=== PATIENT | female | born 1985 | race Caucasian/White ===

== ENCOUNTER → 2017-07-22 | Outpatient (CLI) | payer OTHER ==
[~2017-07-22] MED LIST: BUPR150ER; CHLGLU.12S MT; CIPR500 PO; CITA20 PO; CLIN300 PO; CLON1 PO; Colace100 MG PO; DOCU100 PO; DOXY100 PO; ESCI5; Esgic Tablet1 EACH PO; FISH1000; HYDACE5 PO; IBUP800 PO; LORA1 PO; LORA2 PO; METO10 PO; METO5A PO; METPHE10 PO; NAPR500ERA PO; OXCA150; OXYACE5T PO; PANT40 PO; PARO10; PREN-16 PO; PROM25 PO; RXLORA1 PO; RXOXYACE PO; SERT50 PO; TOPI100; TOPI50 PO; TRAM50 PO; TRAZ100 PO; ZOLP10 PO; [UNRECOGNIZED DRUG - OTHER]
== END | disposition home or self-care (01) ==
LOC: LAB SHORT 16:20 → LAB 16:20
DX: F41.1 Generalized anxiety disorder (principal); Z79.899 Other long term (current) drug therapy
CPT/HCPCS: G0480

== ENCOUNTER 2017-10-08 22:30 | Emergency (ER) | payer OTHER ==
[~2017-10-08] VITALS: Ht 175.3 cm; Wt 55.8 kg
[~2017-10-08 22:30] MED LIST changes: -METPHE10 PO
[2017-10-08] MEDS ORDERED: VENL150ER PO (23:47)
[2017-10-08] MEDS ORDERED: METPHE10 PO (23:48)
[2017-10-09 00:04] LABS: Beta Hcg Serum Pregnancy Negative (Negative); Mono Spot Negative (NEGATIVE)
[2017-10-09] MEDS ORDERED: Zofran Odt4 MG PO (00:29)
== END 2017-10-09 00:38 | disposition home or self-care (01) ==
LOC: ER 22:30
PROVIDERS: Emergency Medicine
DX: G43.909 Migraine, unspecified, not intractable, without status migrainosus (principal); R51 Headache; Z88.0 Allergy status to penicillin; Z91.048 Other nonmedicinal substance allergy status; Z91.040 Latex allergy status; Z79.899 Other long term (current) drug therapy; F32.9 Major depressive disorder, single episode, unspecified
CPT/HCPCS: 36415; 84703; 86308; 96361; 96374; 96375; 99283-25; J1200; J1885; J2765; J7030

== ENCOUNTER → 2018-07-02 | Outpatient (CLI) | payer OTHER ==
[~2018-07-02] MED LIST changes: +METPHE10 PO; +VENL150ER PO; +Zofran Odt4 MG PO
== END ==
LOC: LAB 14:13 → LAB SHORT 14:13
DX: N89.8 Other specified noninflammatory disorders of vagina (principal); R39.9 Unspecified symptoms and signs involving the genitourinary system
CPT/HCPCS: 87086

== ENCOUNTER 2018-11-13 20:43 | Emergency (ER) | payer OTHER ==
[~2018-11-13] VITALS: Ht 175.3 cm; Wt 61.2 kg
[2018-11-13 22:27] LABS: BASOPHILS ABSOLUTE AUTO 0.03 K/mm3 (0.00-0.23); BASOPHILS PERCENT AUTO 0 % (0-2); EOSINOPHILS ABSOLUTE AUTO 0.14 K/mm3 (0.00-0.68); EOSINOPHILS PERCENT AUTO 2 % (0-6); Hematocrit 41.4 % (33.0-51.0); Hemoglobin 13.3 g/dL (11.5-16.0); IMMATURE GRAN ABSOLUTE AUTO 0.03 K/mm3 (0.00-0.10); IMMATURE GRAN PERCENT AUTO 0 % (0-1); LYMPHOCYTES ABSOLUTE AUTO 1.94 K/mm3 (0.84-5.20); LYMPHOCYTES PERCENT AUTO 28 % (21-46); MONOCYTES ABSOLUTE AUTO 0.38 K/mm3 (0.16-1.47); MONOCYTES PERCENT AUTO 6 % (4-13); Mean Corpuscular HGB 29.5 pg (26.0-34.0); Mean Corpuscular HGB Conc 32.1 g/dL (31.5-36.5); Mean Corpuscular Volume 92 fL (80-100); Mean Platelet Volume 9.9 fL (9.1-12.4); NEUTROPHILS ABSOLUTE AUTO 4.44 K/mm3 (1.96-9.15); NEUTROPHILS PERCENT AUTO 64 % (41-73); Platelet Count 212 K/mm3 (150-400); RDW Coefficient Variation 12.3 % (11.7-14.2); RDW Standard Deviation 41.4 fL (35.1-46.3); Red Blood Cell Count 4.51 M/mm3 (3.80-5.20); White Blood Cell Count 6.96 K/mm3 (4.00-11.30)
[2018-11-13 22:52] LABS: Alanine Aminotransfer (ALT/SGP 22 U/L (12-78); Albumin, Blood 3.8 g/dL (3.4-5.0); Albumin/Globulin Ratio 1.2 (0.8-1.8); Alk Phos 88 U/L (50-136); Anion Gap 5 mmol/L (6-16); Aspartate Aminotrans (AST/SGOT 14 U/L (12-37); Bilirubin, Total 0.2 mg/dL (0.1-1.0); Blood Urea Nitrogen 18 mg/dL (8-24); CO2, Blood 25 mmol/L (21-32); Calcium, Blood 8.7 mg/dL (8.5-10.1); Chloride, Blood 111 mmol/L (98-108); Creatinine, Blood 0.72 mg/dL (0.40-1.00); Globulin, Blood 3.3 g/dL (2.2-4.0); Glomerular Filtration Rate >60 (60-); Glucose, Blood 90 mg/dL (70-99); Potassium, Blood 3.7 mmol/L (3.5-5.5); Sodium, Blood 141 mmol/L (136-145); Total Protein, Blood 7.1 g/dL (6.4-8.2)
[2018-11-14] MEDS ORDERED: PROM25 PO (01:26)
== END 2018-11-14 03:16 | disposition home or self-care (01) ==
LOC: ER 20:43
PROVIDERS: Physician Assistant
DX: B34.9 Viral infection, unspecified (principal); F32.9 Major depressive disorder, single episode, unspecified; Z88.0 Allergy status to penicillin; Z91.048 Other nonmedicinal substance allergy status; Z91.040 Latex allergy status; Z79.899 Other long term (current) drug therapy
CPT/HCPCS: 71046; 80053; 85025; 86308; 87081; 87430; 96374; 96375; 99283-25; J1885; J2550; J7120

== ENCOUNTER 2019-03-26 11:07 | Emergency (ER) | payer OTHER ==
[~2019-03-26] VITALS: Ht 175.3 cm; Wt 65.8 kg
[2019-03-26 12:20] LABS: BASOPHILS ABSOLUTE AUTO 0.03 K/mm3 (0.00-0.23); BASOPHILS PERCENT AUTO 1 % (0-2); EOSINOPHILS PERCENT AUTO 2 % (0-6); Hematocrit 44.4 % (33.0-51.0); Hemoglobin 14.2 g/dL (11.5-16.0); IMMATURE GRAN ABSOLUTE AUTO 0.01 K/mm3 (0.00-0.10); IMMATURE GRAN PERCENT AUTO 0 % (0-1); LYMPHOCYTES ABSOLUTE AUTO 1.38 K/mm3 (0.84-5.20); LYMPHOCYTES PERCENT AUTO 29 % (21-46); MONOCYTES ABSOLUTE AUTO 0.37 K/mm3 (0.16-1.47); MONOCYTES PERCENT AUTO 8 % (4-13); Mean Corpuscular HGB 29.6 pg (26.0-34.0); Mean Corpuscular Volume 93 fL (80-100); Mean Platelet Volume 10.3 fL (9.1-12.4); NEUTROPHILS ABSOLUTE AUTO 2.85 K/mm3 (1.96-9.15); NEUTROPHILS PERCENT AUTO 60 % (41-73); Platelet Count 209 K/mm3 (150-400); RDW Coefficient Variation 12.6 % (11.7-14.2); White Blood Cell Count 4.74 K/mm3 (4.00-11.30)
[2019-03-26 12:36] LABS: Alanine Aminotransfer (ALT/SGP 36 U/L (12-78); Albumin, Blood 3.7 g/dL (3.4-5.0); Albumin/Globulin Ratio 1.2 (0.8-1.8); Alk Phos 70 U/L (50-136); Anion Gap 4 mmol/L (6-16); Aspartate Aminotrans (AST/SGOT 24 U/L (12-37); Bilirubin, Total 0.4 mg/dL (0.1-1.0); Blood Urea Nitrogen 14 mg/dL (8-24); CO2, Blood 28 mmol/L (21-32); Calcium, Blood 8.7 mg/dL (8.5-10.1); Chloride, Blood 110 mmol/L (98-108); Globulin, Blood 3.1 g/dL (2.2-4.0); Glomerular Filtration Rate >60 (60-); Glucose, Blood 92 mg/dL (70-99); Potassium, Blood 3.6 mmol/L (3.5-5.5); Sodium, Blood 142 mmol/L (136-145); Total Protein, Blood 6.8 g/dL (6.4-8.2)
[2019-03-29] MEDS ORDERED: VENLAFAXINE HC150 M1 PO (22:13)
[2019-03-29] MEDS ORDERED: AMPDEX10 (22:14)
== END 2019-03-26 16:00 | disposition home or self-care (01) ==
LOC: ER 11:07
PROVIDERS: Emergency Medicine
DX: K59.09 Other constipation (principal); F41.9 Anxiety disorder, unspecified; F32.9 Major depressive disorder, single episode, unspecified; Z88.0 Allergy status to penicillin; Z91.048 Other nonmedicinal substance allergy status; Z91.040 Latex allergy status; Z79.899 Other long term (current) drug therapy
CPT/HCPCS: 36415; 74022; 80053; 83690; 85025; 96374; 99283-25; J2405

== ENCOUNTER 2019-03-29 16:46 | Observation (INO) | payer OTHER ==
[~2019-03-29] VITALS: Ht 175.3 cm; Wt 68.1 kg
[2019-03-29] MEDS ORDERED: AMPDEX10 PO (22:14)
[2019-03-29] MEDS ORDERED: ZOLPIDEM TARTRAT5 MG PO (22:14)
[2019-03-30 05:58] LABS: Hematocrit 37.4 % (33.0-51.0); Hemoglobin 12.2 g/dL (11.5-16.0); Mean Corpuscular HGB 29.8 pg (26.0-34.0); Mean Corpuscular HGB Conc 32.6 g/dL (31.5-36.5); Mean Corpuscular Volume 91 fL (80-100); Mean Platelet Volume 10.3 fL (9.1-12.4); Platelet Count 174 K/mm3 (150-400); RDW Coefficient Variation 12.3 % (11.7-14.2); RDW Standard Deviation 41.5 fL (35.1-46.3); White Blood Cell Count 7.46 K/mm3 (4.00-11.30)
[2019-03-30 06:16] LABS: Anion Gap 6 mmol/L (6-16); Blood Urea Nitrogen 9 mg/dL (8-24); Bun/Creatinine Ratio 15.7 (12.0-20.0); CO2, Blood 26 mmol/L (21-32); Calcium, Blood 8.1 mg/dL (8.5-10.1); Chloride, Blood 110 mmol/L (98-108); Creatinine, Blood 0.57 mg/dL (0.40-1.00); Glomerular Filtration Rate >60 (60-); Glucose, Blood 81 mg/dL (70-99); Potassium, Blood 3.7 mmol/L (3.5-5.5); Sodium, Blood 142 mmol/L (136-145)
--- NOTE | 2019-03-30 06:50 | NUR ---
PT RESTS QUIETLY SINCE THIS RN ASSUMED CARE, STATED THAT SHE CANNOT DRINK ANYMORE GOLYTELY SHE IS "TOO FULL" ALSO INQUIRES REGARDING WHEN GOLYTELY SHOULD START TO WORK, PT WAS EDUCATED REGARDING NEED TO DRINK MORE, SHE CONTINUES TO APPEAR TO BE ASLEEP WHEN UNDISTURBED. VITALS REMAIN STABLE, PT HAS NOT YET HAD A BOWEL MOVEMENT, APPROXIMATELY 1/3 OF GOLYTELY TAKEN BY PT OF THIS TIME. WILL CONT TO MONITOR.
--- NOTE | 2019-03-30 07:00 | NUR ---
REPORT FROM [facility]PS RN. ASSUMED PT CARE.
--- NOTE | 2019-03-30 07:55 | NUR ---
VSS. ASSESSMENT CHARTED. THIS RN WOKE PT UPON ENTERING ROOM. INSTRUCTED PT TO WORK ON GOLYTELY SHE CAN. PT STATES "I AM TOO FULL TO DRINK MORE" BSC AT BEDSIDE FOR PT. AWAITING BED ASSIGNMENT.
--- NOTE | 2019-03-30 09:25 | NUR ---
OFFERED PT SCHEDULED MEDICATIONS. PT DECLINED AT THIS TIME.
--- NOTE | 2019-03-30 10:16 | NUR ---
PT STATES SHE WALKED TO THE AND HAD SOME WATERY STOOL. PT STATES SHE GOT HER UNDERWEAR DIRTY. HOSP UNDERWEAR AND HOSP PANTS PROVIDED TO PT. AWAITING ROOM ASSIGNMENT.
--- NOTE | 2019-03-30 11:56 | NUR ---
PT STILL WORKING ON [employer]. DENIES NEEDS. AWAITING ROOM ASSIGNMENT.
[2019-03-30] MEDS ORDERED: AIMOVIG AU140 MG/1 M SC (12:16)
[2019-03-30] MEDS ORDERED: LINZESS145 MCG PO (12:17)
--- NOTE | 2019-03-30 17:23 | NUR ---
PATIENT IS ALERT AND ORIENTED AND COOPERATIVE WITH CARE. SHE COMPLAINS OF PAIN IN HER ABDOMEN AND BACK. STATES SHE HAS NOT HAD A BM FOR A MONTH. PAIN TREATED PER EMAR. NAUSEA TREATED PER EMAR. PATIENT REQUESTED A GATORADE TO MIX WITH HER GOLYTELY WHICH SHE HAS BEEN SIPPING ON. STATES SHE HAS PASSED SOME LIQUID STOOL ALONG WITH MUCOUS, NO FORMED BM. WILL CONTINUE TO MONITOR.
--- NOTE | 2019-03-30 17:56 | NUR ---
PT GAVE THIS STUDENT RN PERMISSION TO BE PART OF HER CARE ON 03/31/19.
[2019-03-31 05:27] LABS: Anion Gap 5 mmol/L (6-16); Blood Urea Nitrogen 11 mg/dL (8-24); Bun/Creatinine Ratio 11.9 (12.0-20.0); CO2, Blood 26 mmol/L (21-32); Calcium, Blood 8.3 mg/dL (8.5-10.1); Chloride, Blood 113 mmol/L (98-108); Creatinine, Blood 0.92 mg/dL (0.40-1.00); Glomerular Filtration Rate >60 (60-); Glucose, Blood 89 mg/dL (70-99); Potassium, Blood 4.1 mmol/L (3.5-5.5); Sodium, Blood 144 mmol/L (136-145)
--- NOTE | 2019-03-31 06:11 | NUR ---
SHIFT SUMMARY PT HAD NO NEW ISSUES NOTED. PT REPORTS NO BM'S DURING SHIFT. PT HAS ATE FAST FOODS AND FROM A BAG OF SNACKS NEAR HER BED. PT HAS NOT DRANK MUCH OF THE GOLYTELY. PT REPORTS NAUSEA AND ABD AT BEGINNING OF SHIFT. PT STATES SHE SLEPT T/O SHIFT W/OUT ISSUE. PT STATED THAT SHE IS WILLING TO TRY NG TUBE AGAIN. THIS AM PT IS SLEEPING AND IN NO DISTRESS. CALL LIGHT IN REACH.
--- NOTE | 2019-03-31 16:42 | NUR ---
NS STARTED ON PATIENT AT 125/HR. SOON AFTER THE ADMINISTRATION OF NS, THE PATIENT'S FRIEND NOTICED REDNESS SPREADING ON TH EPATIENT'S NECK. NS STOPPED AND UNHOOKED FROM PATIENT. WILL LET DR. SILVA KNOW.
--- NOTE | 2019-03-31 18:01 | NUR ---
THE PATIENT ADVOCATE, ALLA, TALKED WITH THE PATIENT ABOUT HER CONCERNS TODAY. DR. SILVA AND THE RN WERE INVOLVED IN THE CONVERSATION WITH THE PATIENT AND HER ADVOCATE. NS WAS STARTED AT 125/HR BECAUSE THE PATIENT WAS CONCERNED SHE WAS BECOMING DEHYDRATED ALTHOUGH DR. SILVA VERIFIED HER LAB WORK SHOWS SHE IS NOT DEHYDRATED. BENEDRYL IV WAS ORDERED BECAUSE THE PATIENT BEGAN TO SHOW A REDNESS ON HER NECK AND FACE, THIS WAS ADMINISTERED. DR. CHENEY SAW THE PATIENT AT THE BEDSIDE THIS AFTERNOON. HE STARTED HER ON AN ENEMA BID AND COLACE PO DAILY. DR. CHENEY SAID THE PATIENT DOES NOT HAVE TO DRINK THE GOLYTLEY IF SHE FEELS IT IS NOT HELPING HER. WILL CONTINUE TO MONITOR
--- NOTE | 2019-04-01 04:46 | NUR ---
SHIFT SUMMARY: VSS. AFEB. A/OX4. PT UP ALL NIGHT DESPITE RECEIVING PRN AMBIEN. STATES SHE IS JUST HYPERFOCUSED AND ANXIOUS ABOUT HAVING A BM. FREQUENTLY ATTEMPTING BMS AND STRAINING ON THE TOILET, STATES SHE FEELS PRESSURE IN HER LOW ABD THOUGH SHE NEEDS TO HAVE A BM. NO BM PRODUCED. MED X 2 FOR ABD PAIN W/ GOOD EFFECT. PT REPORTING INCREASED NAUSEA WITHOUT VOMITING TONIGHT- ZOFRAN AND PHENERGAN ADMINISTERED W/IMPROVEMENT IN SYMPTOMS EACH TIME. PT SNACKING ON FOOD BROUGHT IN BY FAMILY/FRIENDS. ABD SOFT, TENDER X 4 W/PALPATION, NON-DISTENDED. PT DENIES PASSING ANY FLATUS. WALKING IN HALLS W/FAMILY. NO ACUTE CHANGES. WILL CONT TO MONITOR.
[2019-04-01 05:25] LABS: BASOPHILS ABSOLUTE AUTO 0.03 K/mm3 (0.00-0.23); BASOPHILS PERCENT AUTO 1 % (0-2); EOSINOPHILS ABSOLUTE AUTO 0.11 K/mm3 (0.00-0.68); EOSINOPHILS PERCENT AUTO 2 % (0-6); Hematocrit 39.6 % (33.0-51.0); Hemoglobin 12.4 g/dL (11.5-16.0); IMMATURE GRAN ABSOLUTE AUTO 0.03 K/mm3 (0.00-0.10); IMMATURE GRAN PERCENT AUTO 1 % (0-1); LYMPHOCYTES ABSOLUTE AUTO 1.53 K/mm3 (0.84-5.20); LYMPHOCYTES PERCENT AUTO 30 % (21-46); MONOCYTES ABSOLUTE AUTO 0.42 K/mm3 (0.16-1.47); MONOCYTES PERCENT AUTO 8 % (4-13); Mean Corpuscular HGB 28.9 pg (26.0-34.0); Mean Corpuscular HGB Conc 31.3 g/dL (31.5-36.5); Mean Corpuscular Volume 92 fL (80-100); Mean Platelet Volume 10.6 fL (9.1-12.4); NEUTROPHILS PERCENT AUTO 59 % (41-73); Platelet Count 186 K/mm3 (150-400); RDW Coefficient Variation 12.4 % (11.7-14.2); RDW Standard Deviation 42.3 fL (35.1-46.3); Red Blood Cell Count 4.29 M/mm3 (3.80-5.20); White Blood Cell Count 5.12 K/mm3 (4.00-11.30)
[2019-04-01 05:39] LABS: Alanine Aminotransfer (ALT/SGP 29 U/L (12-78); Albumin, Blood 3.1 g/dL (3.4-5.0); Albumin/Globulin Ratio 1.1 (0.8-1.8); Alk Phos 57 U/L (50-136); Anion Gap 6 mmol/L (6-16); Aspartate Aminotrans (AST/SGOT 22 U/L (12-37); Bilirubin, Total 0.5 mg/dL (0.1-1.0); Blood Urea Nitrogen 10 mg/dL (8-24); Bun/Creatinine Ratio 11.7 (12.0-20.0); CO2, Blood 24 mmol/L (21-32); Calcium, Blood 8.5 mg/dL (8.5-10.1); Chloride, Blood 113 mmol/L (98-108); Creatinine, Blood 0.86 mg/dL (0.40-1.00); Globulin, Blood 2.9 g/dL (2.2-4.0); Glomerular Filtration Rate >60 (60-); Glucose, Blood 76 mg/dL (70-99); Potassium, Blood 3.6 mmol/L (3.5-5.5); Sodium, Blood 143 mmol/L (136-145)
--- NOTE | 2019-04-01 16:10 | NUR ---
PT IS A/OX3, PLEASANT AND COOPERATIVE, THE PT IS UP IND IN HER ROOM, THE PT THIS AM DID NOT WANT TO TAKE THE ORDERED FLEETS MINERAL OIL ENEMA INSTEAD REPORTED THE A SOAP ALON ENEMA WORKS BETTER FOR HER, A CALL WAS MADE TO DR. CHENEY AND A SOAP ALON ENEMA WAS ORDERED AND ADMINISTERED BY THE POST ACUTE CARE NURSE PRACTITIONER, THE PT REPORTED SOME RESULTS, HOWEVER NOTHING SIGNIFICANT, PT WAS MEDICATED FOR NAUSEA AND PAIN X2 SO FAR THIS SHIFT, PT WAS MEDICATED FOR ANXIETY X1, PT APPEARS TO BE BREATHING EASILY ON RA, CALL LIGHT IN REACH, WILL CONTINUE TO MONITOR AND ASSESS FOR CHANGES
--- NOTE | 2019-04-02 00:51 | NUR ---
CALL PLACED TO ANSWERING SERVICE. PT REPORTING PAIN 8/10 NOT RELIEVED W/TORADOL. STATES PAIN IS IN LOW ABDOMEN AND WRAPS AROUND SIDES AND LOW BACK. PER PT, LOCATION IS UNCHANGED FROM TIME OF ADMIT. DR. CARBAJAL ORDERED FENTANYL 25-50MCG IV Q4HRS PRN TO HELP MANAGE PAIN.
--- NOTE | 2019-04-02 05:09 | NUR ---
SHIFT SUMMARY: VSS. AFEB. A/OX4. COMMUNICATES NEEDS. PT ANXIOUS TONIGHT, STATES THAT NOT HAVING CONTROL OVER WHAT IS GOING ON/NOT KNOWING WHEN SHE WILL BE DISCHARGED/AND STILL NO FORMED BM PRODUCED IS CAUSING HER MUCH ANXIETY. REFUSED PRN ANXIOLYTIC. FENTANYL APPEARS TO HAVE EFFECTIVELY REDUCED PAIN. PT HAS BEEN MOSTLY SLEEPING SINCE RECEIVING ANALGESIC. PT STATES SHE HAS BEEN UNABLE TO SLEEP- REFUSED HER PRN AMBIEN STATING IT MADE HER MORE ALERT. SOAP SUDS ENEMA ADMINISTERED W/SMALL FLECKS OF BM PRODUCED. PT STATES NOTHING FORMED. ABD SOFT, TENDER THROUGHOUT, MILDLY DISTENDED. ANTI-NAUSEA MED X1 W/GOOD EFFECT. UP AMB IN ROOM FREQUENTLY. AMB IN HALLS W/FAMILY AND FRIENDS. NO ACUTE CHANGES, WILL CONT TO MONITOR.
[2019-04-02 05:36] LABS: Anion Gap 7 mmol/L (6-16); Blood Urea Nitrogen 11 mg/dL (8-24); Bun/Creatinine Ratio 13.1 (12.0-20.0); CO2, Blood 22 mmol/L (21-32); Calcium, Blood 8.3 mg/dL (8.5-10.1); Chloride, Blood 113 mmol/L (98-108); Creatinine, Blood 0.84 mg/dL (0.40-1.00); Glomerular Filtration Rate >60 (60-); Glucose, Blood 83 mg/dL (70-99); Phosphorus, Blood 4.4 mg/dL (2.5-4.9); Potassium, Blood 3.9 mmol/L (3.5-5.5); Sodium, Blood 142 mmol/L (136-145)
--- NOTE | 2019-04-02 14:59 | NUR ---
PT TO PROCEDURE PT TAKEN VIA GURNEY TO DAY SURGERY FOR PROCEDURE BY [facility].
--- NOTE | 2019-04-02 15:25 | NUR ---
04/02/19 1525 Bucky Hernandez History, Chart, Medications and Allergies reviewed before start of procedure.MONITOR INTACT WITH CONTINUOUS PULSE OXIMETRY AND INTERMITTENT BP.3-LEAD EKG REVIEWED WITH PHYSICIAN PRIOR TO START OF PROCEDURE.O2 VIA N/C INTACT THROUGHOUT SEDATION/PROCEDURE. PATIENT DETERMINED TO BE ASA APPROPRIATE FOR PROPOFOL SEDATION PRIOR TO START OF PROCEDURE BY DR. HCENEY.
--- NOTE | 2019-04-02 15:34 | NUR ---
LATE ENTRY 1500 PT TRANSFERRED VIA GURNEY FROM [facility]. Patient confirms NPO status and agrees with scheduled surgery. History, Chart, Medications and Allergies reviewed before start of procedure. Lungs clear T/O to Auscultation.
--- NOTE | 2019-04-02 18:27 | NUR ---
SHIFT SUMMARY PT HAD SCOPE WITH IRRGATION TO RESOLVE FECAL IMPACKTION AND TOLORATED WELL. PT WAS MEDICATED FOR PAIN X3 AND NAUSEA X2. PT HAS TOLORATED DINNER WELL. PT EDUCATED ON THE EFFECTS OF NARCOTICS AND SLOWING OF BM'S. PT REQUESTED TO MEDICATED SELF FOR ANXIETY WITH HOME MEDS, PT INFORMED OF HOSPITAL POLICY AND PT DECLINED SELF MEDICATING. CALL LIGHT WITH IN REACH WILL REPORT TO [facility].
--- NOTE | 2019-04-03 01:01 | NUR ---
PATIENT REPORTED PAIN LS ABDOMINAL AND N/V. IV FENTANYL 50 MCG GIVEN AND PO PHENERGAN GIVEN PER EMAR.
--- NOTE | 2019-04-03 01:03 | NUR ---
PATIENT REPORTS INSOMNIA AND TRAZADONE 25 MG PRN GIVEN PER EMAR.
--- NOTE | 2019-04-03 03:51 | NUR ---
SHIFT SUMMARY PATIENT HAD NO ACUTE CHANGES OBSERVED. REPORTED LS ABDOMINAL PAIN AND NAUSEOUS. IV FENTANYL 50 MCG GIVEN AND PO PHENERGAN PER EMAR. PATIENT REPORTS SHE GOT HUNGRY AND ABLE TO EAT PAUL CRACKERS AND SALTINES. REPORTED INSOMNIA AND TRAZADONE 25 MG GIVEN PER EMAR. ANBULATED HALLWAY WITH FRIEND FIRST PART OF SHIFT AND ABLE TO TAKE SHOWER. PIV REMAINS INTACT. VSS/AFEBRILE. CALL LIGHT IN REACH. BED IN LOWEST POSITION. WILL CONTINUE TO MONITOR UNTIL DAY SHIFT NURSE ASSUMES CARE.
[2019-04-03 06:07] LABS: Albumin, Blood 3.2 g/dL (3.4-5.0); Anion Gap 7 mmol/L (6-16); Blood Urea Nitrogen 14 mg/dL (8-24); CO2, Blood 21 mmol/L (21-32); Calcium, Blood 8.6 mg/dL (8.5-10.1); Chloride, Blood 113 mmol/L (98-108); Creatinine, Blood 0.82 mg/dL (0.40-1.00); Glomerular Filtration Rate >60 (60-); Glucose, Blood 87 mg/dL (70-99); Magnesium, Blood 2.1 mg/dL (1.6-2.4); Phosphorus, Blood 4.3 mg/dL (2.5-4.9); Potassium, Blood 3.8 mmol/L (3.5-5.5); Sodium, Blood 141 mmol/L (136-145)
[2019-04-03] MEDS ORDERED: DOCU100 PO (10:12)
[2019-04-03] MEDS ORDERED: Amitiza24 MCG PO (10:13)
[2019-04-03] MEDS ORDERED: IBUP600 PO (10:13)
[2019-04-03] MEDS ORDERED: ONDA4ODT MM (10:14)
[2019-04-03] MEDS ORDERED: PROM25 PO (10:15)
[2019-04-03] MEDS ORDERED: MIRALAX17 GM PO (10:16)
[2019-04-03] MEDS ORDERED: TRAZ50 PO (10:16)
[2019-04-03] MEDS ORDERED: PROP10 PO (10:17)
--- NOTE | 2019-04-03 12:10 | NUR ---
PATIENT DISCHARGING HOME. ALL IV LINES DISCONTINUED. PATIENT MEDICATIONS FA[facility]ED TO [facility] [place].
== END 2019-04-03 13:37 | disposition home or self-care (01) ==
LOC: ER 16:46 → ERHOLD 16:47 → MEDS 16:47 → ENPENDDIS 04-03 10:00 → MEDS 04-03 13:37
PROVIDERS: Family Medicine; Internal Medicine; Internal Medicine Gastroenterology; ADMIT Internal Medicine
PROC: 0DJD8ZZ Inspection of Lower Intestinal Tract, Via Natural or Artificial Opening Endoscopic (ICD-10-PCS; principal; 2019-04-02 15:30)
DX: K59.09 Other constipation (principal); K57.30 Diverticulosis of large intestine without perforation or abscess without bleeding; K58.1 Irritable bowel syndrome with constipation; K21.9 Gastro-esophageal reflux disease without esophagitis; G43.909 Migraine, unspecified, not intractable, without status migrainosus; F32.9 Major depressive disorder, single episode, unspecified; F41.1 Generalized anxiety disorder; F41.0 Panic disorder [episodic paroxysmal anxiety]; Z79.1 Long term (current) use of non-steroidal anti-inflammatories (NSAID); Z79.899 Other long term (current) drug therapy; Z88.0 Allergy status to penicillin; Z91.040 Latex allergy status; Z91.048 Other nonmedicinal substance allergy status; Z87.11 Personal history of peptic ulcer disease
CPT/HCPCS: 36415; 36416; 74176; 80048; 80053; 80069; 83735; 85025; 85027; 96361; 96374; 96375; 96376; 99284; G0378; J1200; J1885; J2060; J2250; J2405; J2704; J3010; J3360; J7030

== ENCOUNTER 2019-04-21 21:05 | Emergency (ER) | payer OTHER ==
[~2019-04-21] VITALS: Ht 175.3 cm; Wt 59.0 kg
[~2019-04-21 21:05] MED LIST changes: +AIMOVIG AU140 MG/1 M SC; +AMPDEX10 PO; +Amitiza24 MCG PO; +IBUP600 PO; +LINZESS145 MCG PO; +MIRALAX17 GM PO; +ONDA4ODT MM; +PROP10 PO; +TRAZ50 PO; +ZOLPIDEM TARTRAT5 MG PO
[2019-04-22] MEDS ORDERED: IBUP600 PO (00:49)
[2019-04-22] MEDS ORDERED: Percocet 7.5-31 EACH PO (00:49)
== END 2019-04-22 01:05 | disposition home or self-care (01) ==
LOC: ER 21:05
DX: S06.0X9A Concussion with loss of consciousness of unspecified duration, initial encounter (principal); S01.81XA Laceration without foreign body of other part of head, initial encounter; S01.512A Laceration without foreign body of oral cavity, initial encounter; S01.511A Laceration without foreign body of lip, initial encounter; Y04.8XXA Assault by other bodily force, initial encounter; Z88.0 Allergy status to penicillin; Z91.048 Other nonmedicinal substance allergy status; Z91.040 Latex allergy status; Z79.899 Other long term (current) drug therapy; F32.9 Major depressive disorder, single episode, unspecified
CPT/HCPCS: 12011; 70450; 72070; 72100; 72125; 96374-59; 96375-59; 99284-25; A9270; J1885; J2405; J3010

== ENCOUNTER → 2019-06-02 | Outpatient (CLI) | payer OTHER ==
[~2019-06-02] MED LIST changes: +Percocet 7.5-31 EACH PO
== END ==
LOC: PLD 09:31 → LAB SHORT 09:31
DX: N94.89 Other specified conditions associated with female genital organs and menstrual cycle (principal)
CPT/HCPCS: 88305; 88312

== ENCOUNTER → 2019-07-14 | Outpatient (CLI) | payer OTHER ==
[2019-07-16 15:09] LABS: HPV 16 Negative (Negative); HPV 18 Negative (Negative); HPV OTHER HR TYPES Positive (Negative)
== END ==
LOC: LAB SHORT 16:40 → LAB UCHC 16:40
PROVIDERS: Registered Nurse Community Health
DX: Z12.4 Encounter for screening for malignant neoplasm of cervix (principal)
CPT/HCPCS: 87624; G0123

== ENCOUNTER → 2019-07-21 | Outpatient (CLI) | payer OTHER ==
[2019-07-21 19:43] LABS: BASOPHILS ABSOLUTE AUTO 0.02 K/mm3 (0.00-0.23); BASOPHILS PERCENT AUTO 0 % (0-2); EOSINOPHILS PERCENT AUTO 2 % (0-6); Hematocrit 42.7 % (33.0-51.0); Hemoglobin 13.7 g/dL (11.5-16.0); IMMATURE GRAN ABSOLUTE AUTO 0.01 K/mm3 (0.00-0.10); IMMATURE GRAN PERCENT AUTO 0 % (0-1); LYMPHOCYTES ABSOLUTE AUTO 1.68 K/mm3 (0.84-5.20); LYMPHOCYTES PERCENT AUTO 30 % (21-46); MONOCYTES ABSOLUTE AUTO 0.34 K/mm3 (0.16-1.47); MONOCYTES PERCENT AUTO 6 % (4-13); Mean Corpuscular HGB 29.2 pg (26.0-34.0); Mean Corpuscular HGB Conc 32.1 g/dL (31.5-36.5); Mean Corpuscular Volume 91 fL (80-100); Mean Platelet Volume 11.1 fL (9.1-12.4); NEUTROPHILS ABSOLUTE AUTO 3.38 K/mm3 (1.96-9.15); NEUTROPHILS PERCENT AUTO 61 % (41-73); Platelet Count 226 K/mm3 (150-400); RDW Coefficient Variation 12.9 % (11.7-14.2); RDW Standard Deviation 42.5 fL (35.1-46.3); Red Blood Cell Count 4.69 M/mm3 (3.80-5.20); White Blood Cell Count 5.53 K/mm3 (4.00-11.30)
[2019-07-21 20:07] LABS: Alanine Aminotransfer (ALT/SGP 23 U/L (12-78); Albumin, Blood 4.2 g/dL (3.4-5.0); Albumin/Globulin Ratio 1.3 (0.8-1.8); Alk Phos 82 U/L (50-136); Anion Gap 5 mmol/L (6-16); Aspartate Aminotrans (AST/SGOT 15 U/L (12-37); Bilirubin, Total 0.2 mg/dL (0.1-1.0); Blood Urea Nitrogen 17 mg/dL (8-24); Bun/Creatinine Ratio 23.7 (12.0-20.0); CO2, Blood 22 mmol/L (21-32); Calcium, Blood 8.3 mg/dL (8.5-10.1); Chloride, Blood 110 mmol/L (98-108); Creatinine, Blood 0.72 mg/dL (0.40-1.00); Globulin, Blood 3.2 g/dL (2.2-4.0); Glomerular Filtration Rate >60 (60-); Glucose, Blood 74 mg/dL (70-99); Potassium, Blood 3.5 mmol/L (3.5-5.5); Sodium, Blood 137 mmol/L (136-145); Total Protein, Blood 7.4 g/dL (6.4-8.2)
== END ==
LOC: LAB 18:44 → LAB SHORT 18:44
PROVIDERS: Registered Nurse Community Health
DX: J39.2 Other diseases of pharynx (principal); K12.0 Recurrent oral aphthae
CPT/HCPCS: 80053; 85025

== ENCOUNTER 2020-05-09 14:19 | Emergency (ER) | payer OTHER ==
[~2020-05-09] VITALS: Ht 175.3 cm; Wt 59.0 kg
[~2020-05-09 14:19] MED LIST changes: +TOPI100 PO
[2020-05-09] MEDS ORDERED: EMGALITY120 MG/1 M (14:48)
[2020-05-09] MEDS ORDERED: ARMODAFINIL250 MG PO (14:50)
[2020-05-09] MEDS ORDERED: Prednisone20 MG PO (15:40)
[2020-05-09] MEDS ORDERED: ALBU90OI INH (15:40)
== END 2020-05-09 16:28 | disposition home or self-care (01) ==
LOC: ER 14:19
DX: J45.901 Unspecified asthma with (acute) exacerbation (principal); J20.9 Acute bronchitis, unspecified; Z88.0 Allergy status to penicillin; Z91.09 Other allergy status, other than to drugs and biological substances; Z91.040 Latex allergy status
CPT/HCPCS: 71046; 99283-25

== ENCOUNTER 2020-05-12 13:57 | Emergency (ER) | payer OTHER ==
[~2020-05-12] VITALS: Ht 165.1 cm; Wt 61.2 kg
[~2020-05-12 13:57] MED LIST changes: +ALBU90OI INH; +ARMODAFINIL250 MG PO; +EMGALITY120 MG/1 M; +Prednisone20 MG PO
[2020-05-12] MEDS ORDERED: BENZ100A (17:01)
[2020-05-12] MEDS ORDERED: ZIPRASIDONE HCL PO (18:51)
[2020-05-12] MEDS ORDERED: METFORMIN HCL500 M3 PO (18:51)
[2020-05-12] MEDS ORDERED: Adipex-P37.5 M1 PO (18:51)
[2020-05-12 19:10] LABS: Influenza A, PCR NEGATIVE (NEGATIVE); Influenza B, PCR NEGATIVE (NEGATIVE); Resp Syncytial Virus, PCR NEGATIVE (NEGATIVE); SARS-Cov-2 (COVID-19) PCR, MMC NEGATIVE (NEGATIVE)
[2020-05-12] MEDS ORDERED: DOXY100 PO (20:17)
[2020-05-12] MEDS ORDERED: CEFP200 PO (20:17)
== END 2020-05-12 20:48 | disposition home or self-care (01) ==
LOC: ER 13:57
PROVIDERS: Physician Assistant
DX: J18.9 Pneumonia, unspecified organism (principal); Z20.822 Contact with and (suspected) exposure to COVID-19
CPT/HCPCS: 0241U; 36415; 71045; 86308; 99283-25; A9270

== ENCOUNTER 2020-05-15 12:37 | Emergency (ER) | payer OTHER ==
[~2020-05-15] VITALS: Ht 175.3 cm; Wt 61.2 kg
[~2020-05-15 12:37] MED LIST changes: +Adipex-P37.5 M1 PO; +BENZ100A; +CEFP200 PO; +METFORMIN HCL500 M3 PO; +ZIPRASIDONE HCL PO
[2020-05-15 13:49] LABS: BASOPHILS ABSOLUTE AUTO 0.05 K/mm3 (0.00-0.23); BASOPHILS PERCENT AUTO 1 % (0-2); EOSINOPHILS ABSOLUTE AUTO 0.14 K/mm3 (0.00-0.68); EOSINOPHILS PERCENT AUTO 2 % (0-6); Hematocrit 41.3 % (33.0-51.0); Hemoglobin 13.5 g/dL (11.5-16.0); IMMATURE GRAN ABSOLUTE AUTO 0.15 K/mm3 (0.00-0.10); IMMATURE GRAN PERCENT AUTO 2 % (0-1); LYMPHOCYTES PERCENT AUTO 17 % (21-46); MONOCYTES PERCENT AUTO 6 % (4-13); Mean Corpuscular HGB 29.4 pg (26.0-34.0); Mean Corpuscular HGB Conc 32.7 g/dL (31.5-36.5); Mean Corpuscular Volume 90 fL (80-100); Mean Platelet Volume 9.5 fL (9.1-12.4); NEUTROPHILS ABSOLUTE AUTO 6.74 K/mm3 (1.96-9.15); NEUTROPHILS PERCENT AUTO 74 % (41-73); Platelet Count 263 K/mm3 (150-400); RDW Coefficient Variation 12.5 % (11.7-14.2); RDW Standard Deviation 41.2 fL (35.1-46.3); Red Blood Cell Count 4.59 M/mm3 (3.80-5.20); White Blood Cell Count 9.08 K/mm3 (4.00-11.30)
[2020-05-15 14:10] LABS: Alanine Aminotransfer (ALT/SGP 66 U/L (12-78); Albumin, Blood 2.9 g/dL (3.4-5.0); Albumin/Globulin Ratio 0.9 (0.8-1.8); Alk Phos 75 U/L (50-136); Anion Gap 3 mmol/L (6-16); Aspartate Aminotrans (AST/SGOT 32 U/L (12-37); Bilirubin, Total 0.4 mg/dL (0.1-1.0); Blood Urea Nitrogen 16 mg/dL (8-24); Bun/Creatinine Ratio 26.7 (12.0-20.0); CO2, Blood 30 mmol/L (21-32); Calcium, Blood 8.6 mg/dL (8.5-10.1); Chloride, Blood 105 mmol/L (98-108); Globulin, Blood 3.3 g/dL (2.2-4.0); Glomerular Filtration Rate >60 (60-); Glucose, Blood 79 mg/dL (70-99); Sodium, Blood 138 mmol/L (136-145); Total Protein, Blood 6.2 g/dL (6.4-8.2); Troponin I <0.015 ng/mL (0.000-0.040)
[2020-05-15 16:25] LABS: Adenovirus Not Detected (NOT DETECT); Bordetella pertussis Not Detected (NOT DETECT); Chlamydophila pneumoniae Not Detected (NOT DETECT); Coronavirus 229E Not Detected (NOT DETECT); Coronavirus HKU1 Not Detected (NOT DETECT); Coronavirus NL63 Not Detected (NOT DETECT); Coronavirus OC43 Not Detected (NOT DETECT); Human Metapneumovirus Not Detected (NOT DETECT); Human Rhinovirus/Enterovirus Detected (NOT DETECT); Influenza A/2009-H1 Not Detected (NOT DETECT); Influenza A/H1 Not Detected (NOT DETECT); Influenza A/H3 Not Detected (NOT DETECT); Influenza B Not Detected (NOT DETECT); Mycoplasma pneumoniae Not Detected (NOT DETECT); Parainfluenza Virus 1 Not Detected (NOT DETECT); Parainfluenza Virus 2 Not Detected (NOT DETECT); Parainfluenza Virus 3 Not Detected (NOT DETECT); Parainfluenza Virus 4 Not Detected (NOT DETECT); Respiratory Syncytial Virus Not Detected (NOT DETECT); SARS-Cov-2 (COVID-19), BioFire Not Detected (NOT DETECT)
[2020-05-15] MEDS ORDERED: PRED20 PO (17:40)
== END 2020-05-15 17:50 | disposition home or self-care (01) ==
LOC: ER 12:37
PROVIDERS: Physician Assistant
DX: J06.9 Acute upper respiratory infection, unspecified (principal); B97.89 Other viral agents as the cause of diseases classified elsewhere; Z20.822 Contact with and (suspected) exposure to COVID-19; Z79.899 Other long term (current) drug therapy
CPT/HCPCS: 0202U; 36415; 71046; 80053; 83690; 84484; 85025; 85379; 93005; 93010; 99284-25; J7512

== ENCOUNTER → 2020-08-18 | Outpatient (CLI) | payer OTHER ==
[~2020-08-18] MED LIST changes: +PRED20 PO
[2020-08-22 14:12] LABS: HPV 16 Negative (Negative); HPV 18 Negative (Negative); HPV OTHER HR TYPES Negative (Negative)
== END ==
LOC: LAB 15:03 → LAB SHORT 15:03
PROVIDERS: Family Medicine
DX: Z01.419 Encounter for gynecological examination (general) (routine) without abnormal findings (principal); Z88.0 Allergy status to penicillin; Z91.048 Other nonmedicinal substance allergy status; Z91.040 Latex allergy status
CPT/HCPCS: 87624; G0123

== ENCOUNTER → 2020-11-04 | Outpatient (CLI) | payer OTHER | END | disposition home or self-care (01) | LOC: LAB SHORT 17:48 → LAB 17:48 | DX: Z20.822 Contact with and (suspected) exposure to COVID-19 (principal) | CPT/HCPCS: U0003 ==

== ENCOUNTER → 2023-11-20 | Outpatient (CLI) | payer OTHER ==
[~2023-11-20] MED LIST changes: +Robaxin750 MG PO
[2023-11-20 15:09] LABS: Adenovirus F 40/41 Not Detected (NOT DETECT); Astrovirus Not Detected (NOT DETECT); Campylobacter Sp Not Detected (NOT DETECT); Cryptosporidium Not Detected (NOT DETECT); Cyclospora Cayetanensis Not Detected (NOT DETECT); E. Coli O157 Not Detected (NOT DETECT); Entamoeba Histolytica Not Detected (NOT DETECT); Enteroaggregative E. coli-EAEC Not Detected (NOT DETECT); Enteropathogenic E. coli-EPEC Detected (NOT DETECT); Enterotoxigenic E. coli-ETEC Not Detected (NOT DETECT); Giardia Lamblia Not Detected (NOT DETECT); Norovirus GI/GII Not Detected (NOT DETECT); Plesiomonas Shigelloides Not Detected (NOT DETECT); Rotavirus A Not Detected (NOT DETECT); Salmonella Sp Not Detected (NOT DETECT); Sapovirus Not Detected (NOT DETECT); Shiga Toxin-prod E. coli-STEC Not Detected (NOT DETECT); Shigella/Enteroin E. coli-EIEC Not Detected (NOT DETECT); Vibrio Cholerae Not Detected (NOT DETECT); Vibrio Sp Not Detected (NOT DETECT); Yersinia Enterocolitica Not Detected (NOT DETECT)
[2023-11-22 00:30] LABS: PANCREATIC ELASTASE,FECAL 275 ug/g (>=100)
[2023-11-22 00:32] LABS: CALPROTECTIN,FECAL <5 ug/g (<=49)
== END ==
LOC: LAB 09:00 → LAB SHORT 09:00
PROVIDERS: Family Medicine
DX: K52.9 Noninfective gastroenteritis and colitis, unspecified (principal)
CPT/HCPCS: 82653; 83993; 87507